=== PATIENT | female | born 1965 | race African-American/Black ===

== ENCOUNTER 2018-08-19 09:14 | Emergency (ER) | payer MEDICARE, OTHER, MEDICAID ==
[~2018-08-19] VITALS: Ht 154.9 cm; Wt 81.6 kg
[2018-08-19] MEDS ORDERED: HYDROcodone/APAP 5 MG/325 MG (LORTAB) TAB PO STA (09:53)
[2018-08-19] MEDS ORDERED: KETOROLAC 60 MG/2 ML VIAL IM STA (09:53)
[2018-08-19] MEDS ORDERED: ORPHENADRINE 60 MG/2 ML (NORFLEX) AMP IM STA (09:53)
--- NOTE | 2018-08-19 10:01 | ED Back Pain ---
General Chief Complaint: Lower Extremity Stated Complaint: R LEG/HIP PAIN Nursing Triage Note: pt presents to ed with complaints of r hip/leg pain since last wednesday. Pt denies any known injury. pt reports pain starts in her r hip and shoots down r leg. Nursing Sepsis Screen: No Definite Risk Source of Information: Patient Exam Limitations: No Limitations History of Present Illness Date Seen by Provider: Aug 19, 2018 Time Seen by Provider: 09:56 Initial Comments Here with report of right hip and leg pain that starts at her low back and shoots down her leg to her foot. Has had history of sciatica before. She has been trying [id number] ibuprofen, Aleve and Tylenol. She has not had anything since yesterday. Pain is worse today. Denies numbness between her legs, fevers, bowel or bladder incontinence or injury. Location: Paraspinous Muscles Timing/Duration: 4-5 Days Severity: Moderate Pain/Injury Location: Back, Pelvis Radiation: Buttocks, Lower Legs, Upper Legs Modifying Factors: Worse With Movement; Improves With Pain Medication Associated Symptoms: muscle spasms; No fever, No weakness, No numbness in legs/ feet; tingling in legs/feet; No lower back pain, No loss of bladder control, No loss of bowel control Allergies and Home Medications Allergies Coded Allergies: No Known Drug Allergies (Unverified , 08/19/18) Patient Home Medication List Home Medication List Reviewed: Yes Review of Systems Constitutional: see HPI; No chills, No fever Respiratory: no symptoms reported Cardiovascular: no symptoms reported Gastrointestinal: No abdominal pain, No nausea, No vomiting Genitourinary: no symptoms reported Musculoskeletal: see HPI, back pain, muscle pain Skin: no symptoms reported Psychiatric/Neurological: See HPI Past Rykpdnf-Xzxluu-Vkvgbv Hx Past Med/Social Hx: Reviewed Nursing Past Med/Soc Hx Patient Social History Alcohol Use: Occasionally Uses Recreational Drug Use: No Smoking Status: Current Everyday Smoker Type Used: Cigarettes Recent Foreign Travel: No Contact w/Someone Who Travel: No Recent Infectious Disease Expo: No Recent Hopitalizations: No Physical Abuse: No Sexual Abuse: No Mistreated: No Fear: No Seasonal Allergies Seasonal Allergies: No Past Medical History Surgeries: Yes Appendectomy, Section, Gallbladder, Hysterectomy, Tubal Ligation Respiratory: No Cardiac: No Neurological: No Genitourinary: No Gastrointestinal: Yes Colitis Musculoskeletal: No Endocrine: No HEENT: No Cancer: No Psychosocial: No Integumentary: No Blood Disorders: No Family Medical History Reviewed Nursing Family Hx Physical Exam Vital Signs Vital Signs - First Documented 08/19/18 09:31 Temp 98.2 Pulse 84 Resp 18 B/P (MAP) 134/97 (109) Pulse Ox 98 Capillary Refill : Less Than 3 Seconds Height, Weight, BMI Height: 5'1.00" Weight: 180lbs. oz. [id number]; BMI Method:Estimated General Appearance: No Apparent Distress, WD/WN Cardiovascular: Regular Rate, Rhythm, No Murmur Respiratory: Lungs Clear, Normal Breath Sounds Gastrointestinal: Normal Bowel Sounds, No Pulsatile Mass, Non Tender, Soft Back: Decreased Range of Motion; No Vertebral Tenderness; Other (tender at the right SI joint. Pain with range of motion to the right hip) Extremity: Normal Range of Motion, Non Tender, Pelvis Stable Neurologic/Psychiatric: Alert, Oriented x3, No Motor/Sensory Deficits Skin: Normal Color, Warm/Dry Progress/Results/Core Measures Results/Orders My Orders Orders - TIERRA DIAMOND MD Hydrocodone/Apap 5/325 Tablet (Lortab 5 (08/19/18 09:53) Ketorolac Injection (Toradol Injection) (08/19/18 09:53) Orphenadrine Injection (Norflex Injectio (08/19/18 09:53) Vital Signs/I&O 08/19/18 09:31 Temp 98.2 Pulse 84 Resp 18 B/P (MAP) 134/97 (109) Pulse Ox 98 Blood Pressure Mean: 109 Progress Progress Note : Progress Note Seen and evaluated. Toradol 60 mg IM, Norflex 60 mg IM and hydrocodone 5/325 one tab by mouth. Discharged home with return precautions. Patient verbalize understanding instructions and agreement with plan. Departure Impression Primary Impression: Sciatica, right side Disposition: HOME, SELF-CARE Condition: Stable Departure-Patient Inst. Decision time for Depature: 10:01 Patient Instructions: Sciatica (DC) Add. Discharge Instructions: All discharge instructions reviewed with patient and/or family. Voiced understanding. You may continue ibuprofen 600 mg every 8 hours as needed for pain. Take other pain medications as prescribed. Do not take Tylenol/acetaminophen with prescribed pain medicine as they both have Tylenol/acetaminophen in them. Follow-up with your doctor for recheck and further evaluation. Return for worse pain, fever, weakness, numbness between your legs, difficulty with walking or going to the bathroom or other concerns as needed. Scripts Methylprednisolone (Medrol) 4 Mg Tab.ds.pk 4 MG PO UD for 6 Days, #21 PKG 0 Refills PER DOSE PACK INSTRUCTIONS Prov: TIERRA DIAMOND MD 08/19/18 Hydrocodone Bit/Acetaminophen (Hydrocodone/Acetaminophen 5/325mg Tablet) 1 Tab Tab 1 EACH PO Q6H PRN for PAIN-MODERATE MDD 10, #10 TAB 0 Refills Prov: TIERRA DIAMOND MD 08/19/18 Cyclobenzaprine HCl (Cyclobenzaprine HCl) 10 Mg Tablet 10 MG PO Q8H PRN for SPASMS, #15 TAB 0 Refills Prov: TIERRA DIAMOND MD 08/19/18 TIERRA DIAMOND MD Aug 19, 2018 10:01
[2018-08-19] MEDS ORDERED: METH4TAB PO (10:04)
[2018-08-19] MEDS ORDERED: CYCL10TA9 PO (10:04)
[2018-08-19] MEDS ORDERED: ACHD5005 PO (10:04)
--- OUTSIDE RECORDS SUMMARY | 2018-08-19 10:26 | XMS REPORT ---
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 Name Role Phone ZACK CARRINGTON Unavailable PROBLEMS Unknown Problems ALLERGIES No Information ENCOUNTERS Encounter Location Date Diagnosis [facility] [address] [facility] [id number] [address] Aug, [facility] [address] [facility] [id number] [address] Jun, Encounter for immunization Z23 IMMUNIZATIONS Vaccine Route Administration Date Status FLULAVAL QUAD 0.5ML (6 MO & UP) 2018 IM Intramuscular Jul 06, 2018 Administered SOCIAL HISTORY Never Assessed REASON FOR VISIT Flu shot Tess Whaley MA PLAN OF CARE VITAL SIGNS MEDICATIONS Unknown Medications RESULTS No Results PROCEDURES Procedure Date Ordered Result Body Site FLULAVAL QUAD 0.5ML (6 MO & UP) 2017Jul 06, 2018 ADMN FLU VAC NO FEE SCHED SAME DAY Jul 06, 2018 SINGLE IMMUNIZATION ADMIN Jul 06, 2018 INSTRUCTIONS MEDICATIONS ADMINISTERED No Known Medications
--- OUTSIDE RECORDS SUMMARY | 2018-08-19 10:27 | XMS REPORT | Continuity of Care Document ---
Author Author [facility] Organization [facility] Address Unknown Phone Unavailable Allergies There is no data. Medications There is no data. Problems Date Dx Coded Attending Type Code Diagnosis Diagnosed By 06/07/2017 ZHANE PAN WORKING F19.10 Other psychoactive substance abuse, uncomplicated 06/07/2017 ZHANE PAN WORKING I10 Essential (primary) hypertension Procedures There is no data. Results Test Result Range CBC WITH DIFF - 06/05/17 23:02 WBC 8.00 10*3/uL 4.00-10.80 RBC 4.77 10*6/uL 4.20-5.40 HGB 15.9 g/dL 12.0-16.0 HCT 45.2 % 37.0-47.0 MCV 95 fL 81-99 MCH 33 pg 26.0-34.0 MCHC 35.2 g/dL 31.0-37.0 PLATELET COUNT 349 10*3/uL 150-400 RDWCV 13.8 % 11.5-14.5 DIFF TYPE AUTOMATED DIFF NEUTROPHIL % 73.5 % 36.0-66.0 LYMPHOCYTE % 20.8 % 24.0-44.0 MONOCYTE % 4.9 % 1.0-10.0 EOSINOPHIL % 0.1 % 0.0-6.0 BASOPHIL % 0.4 % 0.0-2.0 ABS. NEUTROPHILS 5.89 10*3/uL 1.55-7.13 ABS. LYMPHOCYTES 1.66 10*3/uL 1.00-4.80 ABS. MONOCYTES 0.39 10*3/uL 0.40-1.08 ABS. EOSINOPHILS 0.01 10*3/uL 0.00-0.65 ABS. BASOPHILS 0.03 10*3/uL 0.00-0.11 ABSOLUTE NUCLEATED RBC 0.00 10*3/uL 0.00 PERCENT NUCLEATED RBC 0.0 % 0.0 MPV 9.5 fL 9.4-12.3 RDW STANDARD DEVIATION 48.3 fL 36.4-46.3 GRANULOCYTE, IMMATURE, ABSOLUTE 0.0 10*3/uL 0.0-0.1 GRANULOCYTES, IMMATURE, PERCENT 0.3 % 0.0-0.5 COMPREHENSIVE METABOLIC PANEL - 06/05/17 23:02 POTASSIUM 3.2 mmol/L 3.5-5.1 CALCIUM 8.7 mg/dL 8.5-10.0 GLUCOSE 153 mg/dL 70-115 BUN 6 mg/dL 7-18 CREATININE 0.78 mg/dL 0.55-1.30 SODIUM 143 mmol/L 136-145 CHLORIDE 108 mmol/L 98-107 CO2 18 mmol/L 21-32 GFR ESTIMATED NOT AFR/AM >60 GFR ESTIMATED IF AFR/AM >60 ALT-SGPT 21 U/L 13-56 AST-SGOT 23 U/L 15-37 TOTAL PROTEIN,SERUM 8.3 g/dL 6.0-8.3 ALBUMIN 4.1 g/dL 3.4-5.0 ALKALINE PHOSPHATASE 93 U/L 45-117 TOTAL BILIRUBIN 0.3 mg/dL 0.2-1.0 ANION GAP 17 5-15 GLOBULIN, CALCULATED 4.2 g/dL A/G RATIO 1.0 ratio 1-1.8 LIPASE - 06/05/17 23:02 LIPASE 312 U/L 73-393 TROPONIN, HIGH SENSITIVITY - 06/05/17 23:02 TROPONIN HIGH SENSITIVITY <0.015 ng/mL <0.046 TSH WITH REFLEX TO FREE T4 - 06/05/17 23:02 TSH 3RD GENERATION 0.512 u[iU]/mL 0.350-4.900 URINALYSIS AUTOMATED W MICROSCOPY - 06/06/17 03:50 SPECIMEN VOIDED URINE COLOR LIGHT YELLOW APPEARANCE CLEAR CLEAR SPECIFIC GRAVITY 1.021 1.005-1.030 PH, URINE 6.5 5.0-9.0 PROTEIN SMALL mg/dL NEGATIVE GLUC TRACE mg/dL NEGATIVE KETONES TRACE mg/dL NEGATIVE BILIRUBIN NEGATIVE NEGATIVE BLOOD TRACE NEGATIVE NITRITE NEGATIVE NEGATIVE UROBILINOGEN NORMAL mg/dL NORMAL LEUKOCYTE ESTERASE NEGATIVE NEGATIVE WBC'S 1 [HPF] 0-4 RBC'S 1 [HPF] 0-1 MUCUS RARE [LPF] NEGATIVE SQUAMOUS EPITHELIAL CELLS 0 [HPF] 0-1 DRUG SCREEN URINE - 06/06/17 03:50 BARBITURATE, URINE NEGATIVE NEGATIVE BENZODIAZEPINE, URINE NEGATIVE NEGATIVE AMPHETAMINE, URINE NEGATIVE NEGATIVE THC, URINE POSITIVE NEGATIVE COCAINE, URINE NEGATIVE NEGATIVE OPIATES, URINE POSITIVE NEGATIVE PHENCYCLIDINE, URINE SCREEN NEGATIVE NEGATIVE ALCOHOL, URINE POSITIVE NEGATIVE ALCOHOL - 06/06/17 05:00 ALCOHOL NEGATIVE mg/dL NEGATIVE TROPONIN I POCT - 06/06/17 05:03 POC COMMENT SEE NOTES CARDIAC TROPONIN I POCT 0.03 ng/mL <0.08 GLUCOSE POCT - 06/06/17 06:39 GLUCOSE BY METER 137 mg/dL 70-115 POC COMMENT SEE NOTES BASIC METABOLIC PANEL - 06/07/17 04:19 POTASSIUM 3.7 mmol/L 3.5-5.1 CALCIUM 8.5 mg/dL 8.5-10.0 GLUCOSE 77 mg/dL 70-115 BUN 9 mg/dL 7-18 CREATININE 0.76 mg/dL 0.55-1.30 SODIUM 138 mmol/L 136-145 CHLORIDE 104 mmol/L 98-107 CO2 24 mmol/L 21-32 GFR ESTIMATED NOT AFR/AM >60 GFR ESTIMATED IF AFR/AM >60 ANION GAP 10 5-15 CBC WITH DIFF - 06/07/17 04:19 WBC 11.08 10*3/uL 4.00-10.80 RBC 4.55 10*6/uL 4.20-5.40 HGB 14.9 g/dL 12.0-16.0 HCT 44.4 % 37.0-47.0 MCV 98 fL 81-99 MCH 33 pg 26.0-34.0 MCHC 33.6 g/dL 31.0-37.0 PLATELET COUNT 326 10*3/uL 150-400 RDWCV 14.2 % 11.5-14.5 DIFF TYPE AUTOMATED DIFF NEUTROPHIL % 58.1 % 36.0-66.0 LYMPHOCYTE % 32.7 % 24.0-44.0 MONOCYTE % 8.2 % 1.0-10.0 EOSINOPHIL % 0.5 % 0.0-6.0 BASOPHIL % 0.2 % 0.0-2.0 ABS. NEUTROPHILS 6.45 10*3/uL 1.55-7.13 ABS. LYMPHOCYTES 3.62 10*3/uL 1.00-4.80 ABS. MONOCYTES 0.91 10*3/uL 0.40-1.08 ABS. EOSINOPHILS 0.05 10*3/uL 0.00-0.65 ABS. BASOPHILS 0.02 10*3/uL 0.00-0.11 ABSOLUTE NUCLEATED RBC 0.00 10*3/uL 0.00 PERCENT NUCLEATED RBC 0.0 % 0.0 MPV 10.0 fL 9.4-12.3 RDW STANDARD DEVIATION 51.0 fL 36.4-46.3 GRANULOCYTE, IMMATURE, ABSOLUTE 0.0 10*3/uL 0.0-0.1 GRANULOCYTES, IMMATURE, PERCENT 0.3 % 0.0-0.5 Encounters ACCT No. Visit Date/Time Discharge Status Pt. Type Provider Facility Loc./Unit Complaint [id number] 06/05/2017 22:03:00 06/07/2017 12:13:00 DIS Inpatient ZHANE PAN [address]
[2018-08-19 10:28] VITALS: BP 142/78
== END 2018-08-19 10:27 | disposition home or self-care (01) ==
LOC: ER 09:15
DX: M54.41 Lumbago with sciatica, right side (principal); F17.210 Nicotine dependence, cigarettes, uncomplicated; Z98.890 Other specified postprocedural states; Z90.49 Acquired absence of other specified parts of digestive tract; Z87.19 Personal history of other diseases of the digestive system; Z98.51 Tubal ligation status; Z90.710 Acquired absence of both cervix and uterus
CPT/HCPCS: 99284

== ENCOUNTER 2018-09-24 12:08 | Emergency (ER) | payer MEDICARE, OTHER, MEDICAID | END 2018-09-24 13:29 | disposition home or self-care (01) | LOC: ER 12:08 ==

== ENCOUNTER 2018-09-29 07:29 | Emergency (ER) | payer MEDICARE, OTHER, MEDICAID | END 2018-09-29 11:00 | disposition home or self-care (01) | LOC: ER 07:29 ==

== ENCOUNTER 2019-01-04 10:50 | Inpatient (IN) | payer MEDICARE, MEDICAID, OTHER | END 2019-01-05 10:45 | disposition left against medical advice (07) | LOC: ER 10:50 → ICU 15:30 | DX: I16.0 Hypertensive urgency (principal); F14.10 Cocaine abuse, uncomplicated; T40.5X5A Adverse effect of cocaine, initial encounter; A08.4 Viral intestinal infection, unspecified; E87.2 Acidosis; F17.210 Nicotine dependence, cigarettes, uncomplicated; R00.0 Tachycardia, unspecified; R40.0 Somnolence; D72.829 Elevated white blood cell count, unspecified; E83.42 Hypomagnesemia; E87.6 Hypokalemia ==

== ENCOUNTER 2020-04-01 14:52 | Emergency (ER) | payer MEDICAID, MEDICARE, OTHER ==
[~2020-04-01] VITALS: Ht 162 cm; Wt 72.5 kg
[~2020-04-01 14:52] MED LIST: ACHD5005 PO; AMIT25TA9 PO; AMLO10TA7 PO; CYCL10TA9 PO; IBUP-30 PO; METH4TAB PO; ONDA4TAB11 PO; PROM25TA14 PO
--- NOTE | 2020-04-01 14:57 | ED Abdominal Pain ---
General Stated Complaint: ABD PAIN;N/V Source of Information: Patient Exam Limitations: No Limitations History of Present Illness Date Seen by Provider: Apr 01, 2020 Time Seen by Provider: 14:55 Initial Comments To ER with nausea vomiting and abdominal pain epigastric in location that began at 2 AM this morning. She smokes marijuana daily. She was given Zofran route this does not help. She lives in [facility] and is here visiting a friend. Timing/Duration: 1-2 Days Severity/Quality: Moderate Location: Epigastric Radiation: No Radiation Activities at Onset: None Associated Symptoms: Nausea/Vomiting Allergies and Home Medications Allergies Coded Allergies: No Known Drug Allergies (Unverified , 08/19/18) Home Medications Amitriptyline HCl 25 Mg Tablet, 25 MG PO DAILY Prescribed by: SUMAYA STOKES on 01/05/19 1002 Patient Home Medication List Home Medication List Reviewed: Yes Review of Systems Review of Systems Constitutional: see HPI EENTM: No Symptoms Reported Respiratory: No Symptoms Reported Cardiovascular: No Symptoms Reported Gastrointestinal: See HPI, Abdominal Pain, Nausea Genitourinary: No Symptoms Reported Musculoskeletal: no symptoms reported Skin: no symptoms reported Psychiatric/Neurological: No Symptoms Reported Endocrine: No Symptoms Reported Hematologic/Lymphatic: No Symptoms Reported Past Ekmltbh-Cuxdzd-Kxbqlc Hx Patient Social History Alcohol Beverage of Choice: Beer Drug of Choice: MJ Type Used: Cigarettes Recent Hopitalizations: Yes (MAY 24-) Seasonal Allergies Seasonal Allergies: No Past Medical History Surgeries: Yes Appendectomy, Section, Gallbladder, Hysterectomy, Tubal Ligation Respiratory: No Cardiac: No Neurological: No Genitourinary: No Gastrointestinal: Yes Colitis Musculoskeletal: No Endocrine: No HEENT: No Cancer: No Psychosocial: No Integumentary: No Blood Disorders: No Physical Exam Vital Signs Vital Signs - First Documented 04/01/20 14:52 Temp 37.0 Pulse 93 Resp 18 B/P (MAP) 232/147 (175) Pulse Ox 100 O2 Delivery Room Air Capillary Refill : Height/Weight/BMI Height: 5'4.00" Weight: 174lbs. 2.0oz. 78.322465dc; 28.3 BMI Method:Stated General Appearance: WD/WN, moderate distress, other (wretching, diaphoresis) Neck: non-tender, full range of motion Respiratory: no respiratory distress, no accessory muscle use Gastrointestinal: normal bowel sounds, soft, tenderness Extremities: normal range of motion, non-tender Pelvic: normal external exam, normal adnexa Skin: normal color, diaphoresis Progress/Results/Core Measures Results/Orders Lab Results Laboratory Tests Test 04/01/20 15:00 04/01/20 15:19 Range/Units White Blood Count 8.0 4.3-11.0 10^3/uL Red Blood Count 4.90 4.35-5.85 10^6/uL Hemoglobin 16.1 H 11.5-16.0 G/DL Hematocrit 46 35-52 % Mean Corpuscular Volume 93 80-99 FL Mean Corpuscular Hemoglobin 33 25-34 PG Mean Corpuscular Hemoglobin Concent 35 32-36 G/DL Red Cell Distribution Width 13.6 10.0-14.5 % Platelet Count 351 130-400 10^3/uL Mean Platelet Volume 9.6 7.4-10.4 FL Neutrophils (%) (Auto) 63 42-75 % Lymphocytes (%) (Auto) 28 12-44 % Monocytes (%) (Auto) 8 0-12 % Eosinophils (%) (Auto) 1 0-10 % Basophils (%) (Auto) 0 0-10 % Neutrophils # (Auto) 5.1 1.8-7.8 X 10^3 Lymphocytes # (Auto) 2.2 1.0-4.0 X 10^3 Monocytes # (Auto) 0.7 0.0-1.0 X 10^3 Eosinophils # (Auto) 0.0 0.0-0.3 10^3/uL Basophils # (Auto) 0.0 0.0-0.1 10^3/uL Sodium Level 143 135-145 MMOL/L Potassium Level 3.6 3.6-5.0 MMOL/L Chloride Level 104 98-107 MMOL/L Carbon Dioxide Level 19 L 21-32 MMOL/L Anion Gap 20 H 5-14 MMOL/L Blood Urea Nitrogen 4 L 7-18 MG/DL Creatinine 0.96 0.60-1.30 MG/DL Estimat Glomerular Filtration Rate > 60 BUN/Creatinine Ratio 4 Glucose Level 129 H 70-105 MG/DL Calcium Level 9.9 8.5-10.1 MG/DL Corrected Calcium 8.5-10.1 MG/DL Total Bilirubin 1.4 H 0.1-1.0 MG/DL Aspartate Amino Transf (AST/SGOT) 38 H 5-34 U/L Alanine Aminotransferase (ALT/SGPT) 17 0-55 U/L Alkaline Phosphatase 90 40-136 U/L Troponin I < 0.028 <0.028 NG/ML Total Protein 8.1 6.4-8.2 GM/DL Albumin 4.9 H 3.2-4.5 GM/DL Lipase 29 8-78 U/L Serum Alcohol < 10 <10 MG/DL Urine Color YELLOW Urine Clarity CLEAR Urine pH 7.5 5-9 [address]rine Specific [facility] 1.020 1.016-1.022 Urine Protein 2+ H NEGATIVE Urine Glucose (UA) NEGATIVE NEGATIVE Urine Ketones TRACE H NEGATIVE Urine Nitrite NEGATIVE NEGATIVE Urine Bilirubin NEGATIVE NEGATIVE Urine Urobilinogen 0.2 < = 1.0 MG/DL Urine Leukocyte Esterase NEGATIVE NEGATIVE Urine RBC (Auto) TRACE-I NEGATIVE Urine RBC 0-2 /HPF Urine WBC 0-2 /HPF Urine Squamous Epithelial Cells 5-10 /HPF Urine Crystals PRESENT H /LPF Urine Amorphous Sediment FEW SARABJIT PHOSPHATE H /LPF Urine Bacteria TRACE /HPF Urine Casts NONE /LPF Urine Mucus LARGE H /LPF Urine Culture Indicated NO Urine Opiates Screen NEGATIVE NEGATIVE Urine Oxycodone Screen NEGATIVE NEGATIVE Urine Methadone Screen NEGATIVE NEGATIVE Urine Propoxyphene Screen NEGATIVE NEGATIVE Urine Barbiturates Screen NEGATIVE NEGATIVE Ur Tricyclic Antidepressants Screen NEGATIVE NEGATIVE Urine Phencyclidine Screen NEGATIVE NEGATIVE Urine Amphetamines Screen NEGATIVE NEGATIVE Urine Methamphetamines Screen NEGATIVE NEGATIVE Urine Benzodiazepines Screen NEGATIVE NEGATIVE Urine Cocaine Screen POSITIVE H NEGATIVE Urine Cannabinoids Screen POSITIVE H NEGATIVE My Orders Orders - ASAD DAVIS APRN Ekg Tracing (04/01/20 14:53) Lipase (04/01/20 14:53) Ua Culture If Indicated (04/01/20 14:53) Drug Screen Stat (Urine) (04/01/20 14:53) Alcohol (04/01/20 14:53) Ed Iv/Invasive Line Start (04/01/20 14:53) Cbc With Automated Diff (04/01/20 14:53) Comprehensive Metabolic Panel (04/01/20 14:53) Ns Iv 1000 Ml (Sodium Chloride 0.9%) (04/01/20 15:00) Haloperidol Injection (Haldol Injectio (04/01/20 15:00) Lorazepam Injection (Ativan Injection) (04/01/20 16:00) Lorazepam Injection (Ativan Injection) (04/01/20 16:15) Hydralazine Injection (Apresoline Inject (04/01/20 16:15) Ct Abdomen/Pelvis W (04/01/20 16:11) Iohexol Injection (Omnipaque 350 Mg/Ml 1 (04/01/20 16:15) Received Contrast (Hold Metformin- Contr (04/01/20 16:15) Ns (Ivpb) (Sodium Chloride 0.9% Ivpb Bag (04/01/20 16:15) Troponin I (04/01/20 16:42) D5w Iv Solution (Ex... W/Nitroprusside I (04/01/20 16:45) Clonidine Tablet (Catapres Tablet) (04/01/20 17:15) Medications Given in ED Current Medications Medications Dose Ordered Sig/Doni Route Start Time Stop Time Status Last Admin Dose Admin Clonidine HCl 0.2 mg ONCE ONCE PO 04/01/20 17:15 04/01/20 17:16 DC 04/01/20 17:18 0.2 MG Haloperidol Lactate 5 mg ONCE ONCE IV 04/01/20 15:00 04/01/20 15:01 DC 04/01/20 15:05 5 MG Hydralazine HCl 20 mg ONCE ONCE IV 04/01/20 16:15 04/01/20 16:16 DC 04/01/20 17:12 20 MG Iohexol 100 ml ONCE ONCE IV 04/01/20 16:15 04/01/20 16:17 DC 04/01/20 16:59 100 ML Lorazepam 1 mg ONCE PRN IVP 04/01/20 16:00 04/01/20 15:56 1 MG Sodium Chloride 100 ml ONCE ONCE IV 04/01/20 16:15 04/01/20 16:17 DC 04/01/20 16:59 100 ML Vital Signs/I&O 04/01/20 04/01/20 14:52 15:59 Temp 37.0 Pulse 93 71 Resp 18 16 B/P (MAP) 232/147 (175) 243/140 (174) Pulse Ox 100 99 O2 Delivery Room Air Room Air Diagnostic Imaging Diagonstic Imaging: CT Comments NAME: MONICA MOJICA REC#: [id number] PT STATUS: REG ER : 1965 PHYSICIAN: ASAD DAVIS [employer]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 TECHNIQUE: Multiple contiguous axial images were obtained through the abdomen and pelvis after administration of intravenous contrast. INDICATION: Nausea, emesis, diarrhea and abdominal pain. COMPARISON: 01/04/2019. FINDINGS: There is somewhat heterogeneous low-density seen throughout the liver parenchyma. This is likely due to geographic fatty infiltration. Gallbladder is surgically absent without evidence of biliary ductal dilatation. There is no evidence of pancreatic, adrenal gland or renal lesion. There is no evidence of free fluid within the abdomen or pelvis. The urinary bladder is distended but otherwise unremarkable in appearance. There is no evidence of free fluid within the abdomen or pelvis. There is mild aortoiliac atherosclerotic calcification. There appears to be diffuse mural thickening involving the colon. No significant pericolonic inflammation or organized fluid collection is identified. IMPRESSION: Diffuse colonic mural thickening suggestive of colitis. No other definite acute abnormality is identified, although there does appear to be geographic fatty infiltration of the liver. Dictated on workstation # [id number] Dict: 04/01/20 1709 Trans: 04/01/20 1713 [facility] [id number] Interpreted by: JEN AYALA MD Electronically signed by: Departure Communication (Admissions) 1648-blood pressure still 240/129 heart rate 80s. 20 mg of IV hydralazine +0.2 mg of clonidine ordered. At this time she feels much better, her abdominal pain and nausea are mostly gone. She states she does feel good enough to go on home however her blood pressure is concerning. 1809-still feeling well, blood pressure down to 198/124. Next reading continues to drop we will discharge to home with a prescription for antihypertensives and have her follow up with primary care. Impression Primary Impression: Cannabinoid hyperemesis syndrome Additional Impressions: Cocaine abuse Uncontrolled hypertension Disposition: ADMITTED INPATIENT Condition: Stable Admissions Decision to Admit Reason: Admit from ER (General) Decision to Admit/Date: Apr 01, 2020 Time/Decision to Admit Time: 16:47 Departure-Patient Inst. Decision time for Depature: 18:11 Referrals: [facility] (PCP/Family) Primary Care Physician Patient Instructions: Malignant Hypertension (DC) Add. Discharge Instructions: 1. Medication as directed. Try super hard not to use any more cocaine or marijuana. Scripts Losartan Potassium (Losartan Potassium) 50 Mg Tablet 50 MG PO DAILY, #30 TAB Prov: ASAD DAVIS APRN 04/01/20 ASAD DAVIS APRN Apr 01, 2020 14:56
[2020-04-01] MEDS ORDERED: NS IV 1000 ML 1,000 ML IV SCH (15:00)
[2020-04-01] MEDS ORDERED: HALOPERIDOL 5 MG/ML (HALDOL) VIAL IV ONE (15:00)
[2020-04-01 15:13] LABS: BASOPHILS % (AUTO) 0 % (0-10); EOSINOPHILS % (AUTO) 1 % (0-10); HEMATOCRIT 46 % (35-52); HEMOGLOBIN 16.1 G/DL (11.5-16.0); LYMPHOCYTES # (AUTO) 2.2 X 10^3 (1.0-4.0); LYMPHOCYTES % (AUTO) 28 % (12-44); MEAN CORPUSCULAR HEMOGLOBIN 33 PG (25-34); MEAN CORPUSCULAR HGB CONC 35 G/DL (32-36); MEAN CORPUSCULAR VOLUME 93 FL (80-99); MEAN PLATELET VOLUME 9.6 FL (7.4-10.4); MONOCYTES # (AUTO) 0.7 X 10^3 (0.0-1.0); MONOCYTES % (AUTO) 8 % (0-12); NEUTROPHILS # (AUTO) 5.1 X 10^3 (1.8-7.8); NEUTROPHILS % (AUTO) 63 % (42-75); PLATELET COUNT 351 10^3/uL (130-400); RED CELL DISTRIBUTION WIDTH 13.6 % (10.0-14.5)
[2020-04-01 15:18] LABS: ALBUMIN 4.9 GM/DL (3.2-4.5); CHLORIDE 104 MMOL/L (98-107); POTASSIUM 3.6 MMOL/L (3.6-5.0); SODIUM 143 MMOL/L (135-145)
[2020-04-01 15:19] LABS: CALCIUM 9.9 MG/DL (8.5-10.1)
[2020-04-01 15:21] LABS: GLUCOSE 129 MG/DL (70-105); TOTAL PROTEIN 8.1 GM/DL (6.4-8.2)
[2020-04-01 15:22] LABS: BILIRUBIN,TOTAL 1.4 MG/DL (0.1-1.0); CARBON DIOXIDE 19 MMOL/L (21-32)
[2020-04-01 15:24] LABS: ALKALINE PHOSPHATASE 90 U/L (40-136); CREATININE SERUM 0.96 MG/DL (0.60-1.30); GFR ESTIMATED > 60
[2020-04-01 15:25] LABS: BUN/CREATININE RATIO 4
[2020-04-01 15:27] LABS: ALANINE AMINOTRANSFERASE 17 U/L (0-55)
[2020-04-01 15:28] LABS: LIPASE 29 U/L (8-78)
[2020-04-01 15:32] LABS: BILIRUBIN,URINE NEGATIVE (NEGATIVE); CLARITY,URINE CLEAR; COLOR,URINE YELLOW; GLUCOSE, URINE (UA) NEGATIVE (NEGATIVE); KETONES,URINE TRACE (NEGATIVE); LEUKOCYTE ESTERASE ,URINE NEGATIVE (NEGATIVE); NITRITE,URINE NEGATIVE (NEGATIVE); PH,URINE 7.5 (5-9); PROTEIN,URINE 2+ (NEGATIVE)
[2020-04-01 15:48] LABS: AMPHETAMINE SCREEN, URINE NEGATIVE (NEGATIVE); BARBITURATE SCREEN URINE NEGATIVE (NEGATIVE); BENZODIAZEPINES SCREEN URINE NEGATIVE (NEGATIVE); CANNABINOID SCREEN, URINE POSITIVE (NEGATIVE); COCAINE SCREEN URINE POSITIVE (NEGATIVE); METHADONE STAT NEGATIVE (NEGATIVE); METHAMPHETAMINE SCREEN URINE S NEGATIVE (NEGATIVE); OPIATE SCREEN URINE NEGATIVE (NEGATIVE); OXYCODONE STAT NEGATIVE (NEGATIVE); PROPOXYPHENE STAT NEGATIVE (NEGATIVE); TRICYCLIC ANTIDEPRESSANTS SCRE NEGATIVE (NEGATIVE)
[2020-04-01 15:59] VITALS: BP 243/140
[2020-04-01] MEDS ORDERED: LORazepam INJ 2 MG/ML (ATIVAN) VIAL IVP PRN (16:00)
[2020-04-01 16:05] LABS: BACTERIA,URINE TRACE /HPF; RBC,URINE 0-2 /HPF; WBC,URINE 0-2 /HPF
[2020-04-01 16:06] LABS: AMORPHOUS SEDIMENT,UR FEW AMOR PHOSPHATE /LPF
[2020-04-01] MEDS ORDERED: IOHEXOL 350 MG/ML 100 ML (OMNIPAQUE 350) VIAL IV ONE (16:15)
[2020-04-01] MEDS ORDERED: HOLD METFORMIN - RECEIVED CONTRAST 20 ML VIAL IV SCH (16:15)
[2020-04-01] MEDS ORDERED: hydrALAZINE (APESOLINE) 20 MG/ML VIAL IV ONE (16:15)
[2020-04-01] MEDS ORDERED: LORazepam INJ 2 MG/ML (ATIVAN) VIAL IVP ONE (16:15)
[2020-04-01] MEDS ORDERED: NS 100 ML (IVPB) BAG IV ONE (16:15)
[2020-04-01] MEDS ORDERED: NITROPRUSSIDE INJECTION 50 MG in D5W IV SOLUTION (EXCEL) 250 ML IV SCH (16:45)
--- NOTE | 2020-04-01 17:14 | Diagnostic Imaging Report ---
CT ABDOMEN/PELVIS W PROCEDURE: CT abdomen and pelvis with contrast. TECHNIQUE: Multiple contiguous axial images were obtained through the abdomen and pelvis after administration of intravenous contrast. INDICATION: Nausea, emesis, diarrhea and abdominal pain. COMPARISON: 01/04/2019. FINDINGS: There is somewhat heterogeneous low-density seen throughout the liver parenchyma. This is likely due to geographic fatty infiltration. Gallbladder is surgically absent without evidence of biliary ductal dilatation. There is no evidence of pancreatic, adrenal gland or renal lesion. There is no evidence of free fluid within the abdomen or pelvis. The urinary bladder is distended but otherwise unremarkable in appearance. There is no evidence of free fluid within the abdomen or pelvis. There is mild aortoiliac atherosclerotic calcification. There appears to be diffuse mural thickening involving the colon. No significant pericolonic inflammation or organized fluid collection is identified. IMPRESSION: Diffuse colonic mural thickening suggestive of colitis. No other definite acute abnormality is identified, although there does appear to be geographic fatty infiltration of the liver. Dictated by: Dictated on workstation # [id number]
[2020-04-01] MEDS ORDERED: cloNIDine 0.1 MG (CATAPRES) TAB PO ONE (17:15)
--- OUTSIDE RECORDS SUMMARY | 2020-04-01 17:27 | XMS REPORT | Continuity of Care Document ---
Author Organization Unknown Address Unknown Phone Unavailable Allergies Active Description Code Type Severity Reaction Onset Reported/Identified Relationship to Patient Clinical Status Yes No Known Drug Allergies [id number] Drug Allergy Unknown N/A 08/04/2014 Yes No Known Drug Allergies [id number] Drug Allergy Unknown N/A 08/19/2018 Medications There is no data. Problems Date Dx Coded Attending Type Code Diagnosis Diagnosed By 08/05/2014 Other 305.1 T OBACCO USE DISORDER 08/05/2014 Other 491.22 OBSTRUCTIVE CHRONIC BRONCHITIS WITH ACUTE BRONCHITIS 08/05/2014 Other 493.22 CHRONIC OBSTRUCTIVE ASTHMA, W (ACUTE) EXACERBATION 08/05/2014 Other 518.81 ACUTE RESPIRATORY FAILURE 08/05/2014 Other 785.0 T ACHYCARDIA NOS 08/05/2014 Other V45.79 ACQRD ABSENCE OF OTH ORGAN 08/05/2014 Other V88.01 ACQUIRED ABSENCE OF BOTH CERVIX AND UTERUS 01/07/2015 Other 305.1 T OBACCO USE DISORDER 01/07/2015 Other 465.9 A CUTE URI NOS 01/07/2015 Other V45.89 POSTSURGICAL STATES NEC 01/07/2015 Other V88.01 ACQUIRED ABSENCE OF BOTH CERVIX AND UTERUS 02/08/2015 Other 276.2 A CIDOSIS 02/08/2015 Other 276.8 H YPOPOTASSEMIA 02/08/2015 Other 295.90 SCHIZOPHRENIA NOS-UNSPEC 02/08/2015 Other 296.80 BIPOLAR DISORDER, UNSPECIFIED 02/08/2015 Other 305.1 T OBACCO USE DISORDER 02/08/2015 Other 496 CHR AIRWAY OBSTRUCT NEC 02/08/2015 Other 530.81 ESOPHAGEAL REFLUX 02/08/2015 Other 558.9 N ONINF GASTROENTERIT NEC 02/08/2015 Other 560.9 I NTESTINAL OBSTRUCT NOS 02/08/2015 Other 584.5 A CUTE KIDNEY FAILURE WITH LESION OF TUBULAR NECROSIS 02/08/2015 Other 599.0 U RIN TRACT INFECTION NOS 02/08/2015 Other 724.3 S CIATICA 02/08/2015 Other V26.51 TUBAL LIGATION STATUS 02/08/2015 Other V45.79 ACQRD ABSENCE OF OTH ORGAN 02/08/2015 Other V88.01 ACQUIRED ABSENCE OF BOTH CERVIX AND UTERUS 10/15/2015 Other A04.7 E NTEROCOLITIS DUE TO CLOSTRIDIUM DIFFICILE 10/15/2015 Other B96.89 OTH BACTERIAL AGENTS THE CAUSE OF DISEASES CLASSD ELSWHR 10/15/2015 Other E87.6 H YPOKALEMIA 10/15/2015 Other F10.10 ALCOHOL ABUSE, UNCOMPLICATED 10/15/2015 Other F12.90 CANNABIS USE, UNSPECIFIED, UNCOMPLICATED 10/15/2015 Other F14.10 COCAINE ABUSE, UNCOMPLICATED 10/15/2015 Other F17.210 NICOTINE DEPENDENCE, CIGARETTES, UNCOMPLICATED 10/15/2015 Other F20.9 S CHIZOPHRENIA, UNSPECIFIED 10/15/2015 Other F31.9 B IPOLAR DISORDER, UNSPECIFIED 10/15/2015 Other F41.9 A NXIETY DISORDER, UNSPECIFIED 10/15/2015 Other I12.9 H YPERTENSIVE CHRONIC KIDNEY DISEASE W STG 1-4/UNSP CHR KDNY 10/15/2015 Other J44.9 C HRONIC OBSTRUCTIVE PULMONARY DISEASE, UNSPECIFIED 10/15/2015 Other K21.9 G CECIL- ESOPHAGEAL REFLUX DISEASE WITHOUT ESOPHAGITIS 10/15/2015 Other N17.9 A CUTE KIDNEY FAILURE, UNSPECIFIED 10/15/2015 Other N18.9 C HRONIC KIDNEY DISEASE, UNSPECIFIED 10/15/2015 Other Z82.49 FAMILY HX OF ISCHEM HEART DIS AND OTH DIS OF THE CIRC SYS 10/15/2015 Other Z83.3 F AMILY HISTORY OF DIABETES MELLITUS 10/15/2015 Other Z87.440 PERSONAL HISTORY OF URINARY (TRACT) INFECTIONS 10/15/2015 Other Z90.49 ACQUIRED ABSENCE OF OTHER SPECIFIED PARTS OF DIGESTIVE TRACT 10/15/2015 Other Z90.710 ACQUIRED ABSENCE OF BOTH CERVIX AND UTERUS 10/15/2015 Other Z98.51 TUBAL LIGATION STATUS 10/15/2015 Other Z98.89 OTHER SPECIFIED POSTPROCEDURAL STATES 06/07/2017 ZHANE PAN WORKING F19.10 Other psychoactive substance abuse, uncomplicated 06/07/2017 ZHANE PAN WORKING I10 Essential (primary) hypertension 08/22/2017 Other K52.9 N ONINFECTIVE GASTROENTERITIS AND COLITIS, UNSPECIFIED 08/22/2017 Other R11.2 N AUSEA WITH VOMITING, UNSPECIFIED 08/22/2017 Other Z90.49 ACQUIRED ABSENCE OF OTHER SPECIFIED PARTS OF DIGESTIVE TRACT 08/22/2017 Other Z90.710 ACQUIRED ABSENCE OF BOTH CERVIX AND UTERUS 08/22/2017 Other Z98.51 TUBAL LIGATION STATUS 10/15/2017 Other K52.9 N ONINFECTIVE GASTROENTERITIS AND COLITIS, UNSPECIFIED 10/15/2017 Other M54.30 SCIATICA, UNSPECIFIED SIDE 10/15/2017 Other R10.10 UPPER ABDOMINAL PAIN, UNSPECIFIED 10/15/2017 Other Z90.49 ACQUIRED ABSENCE OF OTHER SPECIFIED PARTS OF DIGESTIVE TRACT 10/15/2017 Other Z90.710 ACQUIRED ABSENCE OF BOTH CERVIX AND UTERUS 10/15/2017 Other Z98.51 TUBAL LIGATION STATUS 11/02/2017 Other A09 INF ECTIOUS GASTROENTERITIS AND COLITIS, UNSPECIFIED 11/02/2017 Other A41.9 S EPSIS, UNSPECIFIED ORGANISM 11/02/2017 Other B19.20 UNSPECIFIED VIRAL HEPATITIS C WITHOUT HEPATIC COMA 11/02/2017 Other E87.2 A CIDOSIS 11/02/2017 Other F12.90 CANNABIS USE, UNSPECIFIED, UNCOMPLICATED 11/02/2017 Other F17.210 NICOTINE DEPENDENCE, CIGARETTES, UNCOMPLICATED 11/02/2017 Other F32.9 M AJOR DEPRESSIVE DISORDER, SINGLE EPISODE, UNSPECIFIED 11/02/2017 Other F41.9 A NXIETY DISORDER, UNSPECIFIED 11/02/2017 Other K29.70 GASTRITIS, UNSPECIFIED, WITHOUT BLEEDING 11/02/2017 Other K63.5 P OLYP OF COLON 11/02/2017 Other Z83.3 F AMILY HISTORY OF DIABETES MELLITUS 11/02/2017 Other Z90.49 ACQUIRED ABSENCE OF OTHER SPECIFIED PARTS OF DIGESTIVE TRACT 11/02/2017 Other Z90.710 ACQUIRED ABSENCE OF BOTH CERVIX AND UTERUS 11/02/2017 Other Z98.51 TUBAL LIGATION STATUS 12/17/2017 Other B19.20 UNSPECIFIED VIRAL HEPATITIS C WITHOUT HEPATIC COMA 12/17/2017 Other F12.10 CANNABIS ABUSE, UNCOMPLICATED 12/17/2017 Other F14.10 COCAINE ABUSE, UNCOMPLICATED 12/17/2017 Other F17.210 NICOTINE DEPENDENCE, CIGARETTES, UNCOMPLICATED 12/17/2017 Other F20.9 S CHIZOPHRENIA, UNSPECIFIED 12/17/2017 Other F31.9 B IPOLAR DISORDER, UNSPECIFIED 12/17/2017 Other F41.9 A NXIETY DISORDER, UNSPECIFIED 12/17/2017 Other I11.0 H YPERTENSIVE HEART DISEASE WITH HEART FAILURE 12/17/2017 Other I16.0 H YPERTENSIVE URGENCY 12/17/2017 Other I50.30 UNSPECIFIED DIASTOLIC (CONGESTIVE) HEART FAILURE 12/17/2017 Other J44.9 C HRONIC OBSTRUCTIVE PULMONARY DISEASE, UNSPECIFIED 12/17/2017 Other K21.9 G CECIL- ESOPHAGEAL REFLUX DISEASE WITHOUT ESOPHAGITIS 12/17/2017 Other K52.9 N ONINFECTIVE GASTROENTERITIS AND COLITIS, UNSPECIFIED 12/17/2017 Other K63.5 P OLYP OF COLON 12/17/2017 Other Z87.440 PERSONAL HISTORY OF URINARY (TRACT) INFECTIONS 12/17/2017 Other Z90.49 ACQUIRED ABSENCE OF OTHER SPECIFIED PARTS OF DIGESTIVE TRACT 12/17/2017 Other Z90.710 ACQUIRED ABSENCE OF BOTH CERVIX AND UTERUS 12/17/2017 Other Z91.14 PATIENT'S OTHER NONCOMPLIANCE WITH MEDICATION REGIMEN 12/17/2017 Other Z91.19 PATIENT'S NONCOMPLIANCE W OTH MEDICAL TREATMENT AND REGIMEN 12/17/2017 Other Z98.51 TUBAL LIGATION STATUS 04/29/2018 Other I83.92 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 04/29/2018 Other I83.93 ASYMPTOMATIC VARICOSE VEINS OF BILATERAL LOWER EXTREMITIES 05/11/2018 Other E86.0 D EHYDRATION 05/11/2018 Other F10.231 ALCOHOL DEPENDENCE WITH WITHDRAWAL DELIRIUM 05/11/2018 Other F12.10 CANNABIS ABUSE, UNCOMPLICATED 05/11/2018 Other F14.10 COCAINE ABUSE, UNCOMPLICATED 05/11/2018 Other F17.210 NICOTINE DEPENDENCE, CIGARETTES, UNCOMPLICATED 05/11/2018 Other F20.9 S CHIZOPHRENIA, UNSPECIFIED 05/11/2018 Other F31.9 B IPOLAR DISORDER, UNSPECIFIED 05/11/2018 Other F41.9 A NXIETY DISORDER, UNSPECIFIED 05/11/2018 Other G89.29 OTHER CHRONIC PAIN 05/11/2018 Other G92 TOX IC ENCEPHALOPATHY 05/11/2018 Other I10 ESS ENTIAL (PRIMARY) HYPERTENSION 05/11/2018 Other J44.9 C HRONIC OBSTRUCTIVE PULMONARY DISEASE, UNSPECIFIED 05/11/2018 Other K21.9 G CECIL- ESOPHAGEAL REFLUX DISEASE WITHOUT ESOPHAGITIS 05/11/2018 Other K29.50 UNSPECIFIED CHRONIC GASTRITIS WITHOUT BLEEDING 05/11/2018 Other M54.9 D ORSALGIA, UNSPECIFIED 05/11/2018 Other R07.89 OTHER CHEST PAIN 05/11/2018 Other Y90.5 B LOOD ALCOHOL LEVEL OF 100-119 MG/100 ML 05/11/2018 Other Z79.82 FINANCIAL AID DIRECTOR (CURRENT) USE OF ASPIRIN 05/11/2018 Other Z79.899 OTHER FINANCIAL AID DIRECTOR (CURRENT) DRUG THERAPY 05/11/2018 Other Z86.010 PERSONAL HISTORY OF COLONIC POLYPS 05/11/2018 Other Z87.440 PERSONAL HISTORY OF URINARY (TRACT) INFECTIONS 05/11/2018 Other Z90.49 ACQUIRED ABSENCE OF OTHER SPECIFIED PARTS OF DIGESTIVE TRACT 05/11/2018 Other Z90.710 ACQUIRED ABSENCE OF BOTH CERVIX AND UTERUS 05/11/2018 Other Z91.14 PATIENT'S OTHER NONCOMPLIANCE WITH MEDICATION REGIMEN 05/11/2018 Other Z91.19 PATIENT'S NONCOMPLIANCE W [facility] MEDICAL TREATMENT AND REGIMEN 05/11/2018 Other Z98.51 TUBAL LIGATION STATUS 08/19/2018 TIERRA DIAMOND MD Ot F17.210 NICOTINE DEPENDENCE, CIGARETTES, UNCOMPL 08/19/2018 TIERRA DIAMOND MD, Ot M25.551 PAIN IN RIGHT HIP 08/19/2018 TIERRA DIAMOND MD Ot M54.41 LUMBAGO WITH SCIATICA, RIGHT SIDE 08/19/2018 TIERRA DIAMOND MD Ot Z87.19 PERSONAL HISTORY OF OTHER DISEASES OF TH 08/19/2018 TIERRA DIAMOND MD Ot Z90.49 ACQUIRED ABSENCE OF OTHER SPECIFIED PART 08/19/2018 TIERRA DIAMOND MD Ot Z90.710 ACQUIRED ABSENCE OF BOTH CERVIX AND UTER 08/19/2018 TIERRA DIAMOND MD Ot Z98.51 TUBAL LIGATION STATUS 08/19/2018 TIERRA DIAMOND MD Ot Z98.890 OTHER SPECIFIED POSTPROCEDURAL STATES 09/24/2018 JJ PATTON Ot M25.551 PAIN IN RIGHT HIP 09/24/2018 JJ PATTON Ot M54.31 SCIATICA, RIGHT SIDE 09/24/2018 JJ PATTON Ot Z79.52 ASSISTED (CURRENT) USE OF SYSTEMIC STER 09/24/2018 ALEXUS PATTONIS Ot Z87.19 PERSONAL HISTORY OF OTHER DISEASES OF TH 09/24/2018 JJ PATTON Ot Z90.49 ACQUIRED ABSENCE OF OTHER SPECIFIED PART 09/24/2018 BERNALEXUS MATTHEWIS Ot Z90.710 ACQUIRED ABSENCE OF BOTH CERVIX AND UTER 09/24/2018 ALEXUS PATTONIS Ot Z98.51 TUBAL LIGATION STATUS 09/24/2018 JJ PATTON Ot Z98.890 OTHER SPECIFIED POSTPROCEDURAL STATES 09/29/2018 CHET NAVARRO MD J Ot A08. 4 VIRAL INTESTINAL INFECTION, UNSPECIFIED 09/29/2018 LIZZ NAVARRO MDUS J Ot E11. 9 TYPE 2 DIABETES MELLITUS WITHOUT COMPLIC 09/29/2018 LIZZ NAVARRO MDUS J Ot F17.210 NICOTINE DEPENDENCE, CIGARETTES, UNCOMPL 09/29/2018 LIZZ NAVARRO MDUS J Ot I16. 0 HYPERTENSIVE URGENCY 09/29/2018 LIZZ NAVARRO MDUS J Ot R11. 2 NAUSEA WITH VOMITING, UNSPECIFIED 09/29/2018 CHET NAVARRO MD J Ot Z79. 52 FINANCIAL AID DIRECTOR (CURRENT) USE OF SYSTEMIC STER 09/29/2018 CHET NAVARRO MD J Ot Z87. 19 PERSONAL HISTORY OF OTHER DISEASES OF TH 09/29/2018 CHET NAVARRO MD Ot Z90. 49 ACQUIRED ABSENCE OF OTHER SPECIFIED PART 09/29/2018 CHET NAVARRO MD J Ot Z90.710 ACQUIRED ABSENCE OF BOTH CERVIX AND UTER 09/29/2018 CHET NAVARRO MD J Ot Z98. 51 TUBAL LIGATION STATUS 09/29/2018 CHET NAVARRO MD J Ot Z98.890 OTHER SPECIFIED POSTPROCEDURAL STATES 10/03/2018 CHET NAVARRO MD J Ot A08. 4 VIRAL INTESTINAL INFECTION, UNSPECIFIED 10/03/2018 LIZZ NAVARRO MDUS J Ot E11. 9 TYPE 2 DIABETES MELLITUS WITHOUT COMPLIC 10/03/2018 LIZZ NAVARRO MDUS J Ot F17.210 NICOTINE DEPENDENCE, CIGARETTES, UNCOMPL 10/03/2018 LIZZ NAVARRO MDUS J Ot I16. 0 HYPERTENSIVE URGENCY 10/03/2018 LIZZ NAVARRO MDUS J Ot R11. 2 NAUSEA WITH VOMITING, UNSPECIFIED 10/03/2018 LIZZ NAVARRO MDUS J Ot Z79. 52 ASSISTED (CURRENT) USE OF SYSTEMIC STER 10/03/2018 CHET NAVARRO MD, Ot Z87. 19 PERSONAL HISTORY OF OTHER DISEASES OF TH 10/03/2018 CHET NAVARRO MD, Ot Z90. 49 ACQUIRED ABSENCE OF OTHER SPECIFIED PART 10/03/2018 CHET NAVARRO MD, Ot Z90.710 ACQUIRED ABSENCE OF BOTH CERVIX AND UTER 10/03/2018 CHET NAVARRO MD, Ot Z98. 51 TUBAL LIGATION STATUS 10/03/2018 CHET NAVARRO MD, Ot Z98.890 OTHER SPECIFIED POSTPROCEDURAL STATES 01/05/2019 SUMAYA STOKES MD, Ot A08 .4 VIRAL INTESTINAL INFECTION, UNSPECIFIED 01/05/2019 SUMAYA STOKES MD, Ot D72.829 ELEVATED WHITE BLOOD CELL COUNT, UNSPECI 01/05/2019 SMUAYA STOKES MD Ot E83.42 HYPOMAGNESEMIA 01/05/2019 SUMAYA STOKES MD Ot E87 .2 ACIDOSIS 01/05/2019 SUMAYA STOKES MD Ot E87 .6 HYPOKALEMIA 01/05/2019 SUMAYA STOKES MD Ot F14.10 COCAINE ABUSE, UNCOMPLICATED 01/05/2019 SUMAYA STOKES MD Ot F17.210 NICOTINE DEPENDENCE, CIGARETTES, UNCOMPL 01/05/2019 SUMYAA STOKES MD Ot I16 .0 HYPERTENSIVE URGENCY 01/05/2019 SUMAYA STOKES MD Ot R00 .0 TACHYCARDIA, UNSPECIFIED 01/05/2019 SUMAYA STOKES MD Ot R40 .0 SOMNOLENCE 01/05/2019 SUMAYA STOKES MD Ot T40.5X5A ADVERSE EFFECT OF COCAINE, INITIAL ENCOU 01/05/2019 SUMAYA STOKES MD Ot A08 .4 VIRAL INTESTINAL INFECTION, UNSPECIFIED 01/05/2019 SUMAYA STOKES MD, Ot D72.829 ELEVATED WHITE BLOOD CELL COUNT, UNSPECI 01/05/2019 SUMAYA STOKES MD Ot E83.42 HYPOMAGNESEMIA 01/05/2019 SUMAYA STOKES MD Ot E87 .2 ACIDOSIS 01/05/2019 SUMAYA STOKES MD Ot E87 .6 HYPOKALEMIA 01/05/2019 SUMAYA STOKES MD Ot F14.10 COCAINE ABUSE, UNCOMPLICATED 01/05/2019 DIVYA LINDSAY, SUMAYA Chau Ot F17.210 NICOTINE DEPENDENCE, CIGARETTES, UNCOMPL 01/05/2019 SUMAYA STOKES MD Ot I16 .0 HYPERTENSIVE URGENCY 01/05/2019 SUMAYA STOKES MD Ot R00 .0 TACHYCARDIA, UNSPECIFIED 01/05/2019 SUMAYA STOKES MD Ot R40 .0 SOMNOLENCE 01/05/2019 SUMAYA STOKES MD Ot T40.5X5A ADVERSE EFFECT OF COCAINE, INITIAL ENCOU 02/13/2020 Other K29.50 UNSPECIFIED CHRONIC GASTRITIS WITHOUT BLEEDING 02/13/2020 ASAD ROSAS DO Other F10.20 ALCOHOL DEPENDENCE, UNCOMPLICATED 02/13/2020 ASAD ROSAS DO Other F17.200 NICOTINE DEPENDENCE, UNSPECIFIED, UNCOMPLICATED 02/13/2020 ASAD ROSAS DO Other K52 .9 NONINFECTIVE GASTROENTERITIS AND COLITIS, UNSPECIFIED 02/13/2020 ASAD ROSAS DO Other R10.84 GENERALIZED ABDOMINAL PAIN 02/13/2020 ASAD ROSAS DO Other Y90 .9 PRESENCE OF ALCOHOL IN BLOOD, LEVEL NOT SPECIFIED 02/13/2020 ASAD ROSAS DO Other Z90.49 ACQUIRED ABSENCE OF OTHER SPECIFIED PARTS OF DIGESTIVE TRACT 02/13/2020 ASAD ROSAS DO Other Z90.710 ACQUIRED ABSENCE OF BOTH CERVIX AND UTERUS 02/13/2020 ASAD ROSAS DO Other Z90.89 ACQUIRED ABSENCE OF OTHER ORGANS 02/13/2020 ASAD ROSAS DO Other Z98.51 TUBAL LIGATION STATUS 02/14/2020 Other K29.50 UNSPECIFIED CHRONIC GASTRITIS WITHOUT BLEEDING 02/14/2020 Other K29.50 UNSPECIFIED CHRONIC GASTRITIS WITHOUT BLEEDING 03/25/2020 Other K29.50 UNSPECIFIED CHRONIC GASTRITIS WITHOUT BLEEDING Procedures Code Description [place] [address] CHES T X-RAY 2VW FRONTAL LATL 01/07/2015 75404 EXPI RED GAS COLLECTION 01/07/2015 92950 AIRW AY INHALATION TREATMENT 01/07/2015 60952 THER /PROPH/DIAG INJ SC/IM 01/07/2015 31535 [facility] 01/07/2015 J1885 Inje ction, ketorolac tromethamine, per 01/07/2015 J2930 Inje ction, methylprednisolone sodium s 01/07/2015 J7620 Albu terol, up to 2. 5 mg and ipratropi 01/07/2015 43143 [facility] DEPT VISIT 02/07/2015 37.22 LEFT HEART CARDIAC CATH 02/08/2015 88.56 LISA WILLI ARTERIOGR-2 CATH 02/08/2015 80859 LISA NARY ARTERY ANGIO S I 02/08/2015 34796 [facility] GEN DEPT VISIT 10/12/2015 25124 ROUT INE VENIPUNCTURE 08/22/[address] A BD PELV W/CONTRAST 08/22/2017 42702 COMP REHEN METABOLIC PANEL 08/22/2017 20240 DRUG TEST PRSMV CHEM ANLYZR 08/22/2017 80018 URIN ALYSIS AUTO W/SCOPE 08/22/2017 38933 ASSA Y OF LIPASE 08/22/2017 46741 COMP LETE CBC W/AUTO DIFF WBC 08/22/2017 83299 PROT HROMBIN TIME 08/22/2017 10633 THRO MBOPLASTIN TIME PARTIAL 08/22/2017 91876 FECE S CULTURE AEROBIC BACT 08/22/2017 50399 URIN E CULTURE/COLONY COUNT 08/22/2017 91514 THER /PROPH/DIAG IV INF INIT 08/22/2017 17521 TX/P RO/DX INJ NEW DRUG ADDON 08/22/2017 75498 [facility] DEPT VISIT 08/22/2017 G0480 DRUG TEST DEF 1-7 CLASSES 08/22/2017 J1170 Inje ction, hydromorphone, up to 4 mg 08/22/2017 J2550 Inje ction, promethazine hcl, up to 50 08/22/2017 J7030 Infu leonie, normal saline solution , 100 08/22/2017 Q9967 Low osmolar contrast material, 300-399 08/22/2017 08211 ROUT INE VENIPUNCTURE 10/14/[address] A BD PELV W/CONTRAST 10/14/2017 80182 COMP REHEN METABOLIC PANEL 10/14/2017 20314 URIN ALYSIS AUTO W/SCOPE 10/14/2017 58760 ASSA Y OF LIPASE 10/14/2017 92609 COMP LETE CBC W/AUTO DIFF WBC 10/14/2017 77694 HYDR ATE IV INFUSION ADD-ON 10/14/2017 91418 THER /PROPH/DIAG INJ IV PUSH 10/14/2017 04005 TX/P RO/DX INJ NEW DRUG ADDON 10/14/2017 00909 [facility] 10/14/2017 J1885 Inje ction, ketorolac tromethamine, per 10/14/2017 J2405 Inje ction, ondansetron hydrochloride, 10/14/2017 J7030 Infu leonie, normal saline solution , 100 10/14/2017 Q9967 Low osmolar contrast material, 300-399 10/14/2017 68932 [facility] 10/31/2017 26225 EGD DIAGNOSTIC BRUSH WASH 12/28/2017 J2704 Inje ction, propofol, 10 mg 12/28/2017 37158 X-RA Y EXAM KNEE 4 OR MORE 04/29/2018 06050 EXTR EMITY STUDY 04/29/2018 85401 [facility] 04/29/2018 58912 [facility] GENCY DEPT VISIT 05/09/2018 44770 ROUT INE VENIPUNCTURE 02/13/[address] A BD PELVIS W/O CONTRAST 02/13/2020 54228 COMP REHEN METABOLIC PANEL 02/13/2020 64144 URIN ALYSIS AUTO W/SCOPE 02/13/2020 69364 ASSA Y OF LIPASE 02/13/2020 38306 ASSA Y OF MAGNESIUM 02/13/2020 90111 ASSA Y OF TROPONIN QUANT 02/13/2020 98132 BL S MEAR W/DIFF WBC COUNT 02/13/2020 86985 COMP LETE CBC W/AUTO DIFF WBC 02/13/2020 41097 PROT HROMBIN TIME 02/13/2020 05762 THRO MBOPLASTIN TIME PARTIAL 02/13/2020 71923 URIN E CULTURE/COLONY COUNT 02/13/2020 82019 ELEC TROCARDIOGRAM TRACING 02/13/2020 74348 HYDR ATE IV INFUSION ADD-ON 02/13/2020 32055 THER /PROPH/DIAG INJ IV PUSH 02/13/2020 96000 TX/P RO/DX INJ NEW DRUG ADDON 02/13/2020 34623 [facility] 02/13/2020 J2270 Inje ction, morphine sulfate, up to 10 02/13/2020 J2765 Inje ction, metoclopramide hcl, up to 1 02/13/2020 J7030 Infu leonie, normal saline solution , 100 02/13/2020 Results Test Result Range CBC WITH DIFF [...] fL 9.4-12.3 RDW STANDARD DEVIATION 48.3 fL 36.4-46 .3 GRANULOCYTE, IMMATURE, ABSOLUTE 0.0 10*3/uL 0.0-0.1 GRANULOCYTES, [...] U/L 73-393 TROPONIN, HIGH SENSITIVITY - 06/05/17 23 :02 TROPONIN HIGH SENSITIVITY <0.015 ng/mL < 0.046 TSH WITH REFLEX TO FREE T4 - 06/05/17 23 :02 TSH 3RD GENERATION 0.512 u[iU]/mL 0.350- 4.900 URINALYSIS AUTOMATED W MICROSCOPY - 09/22 03:50 SPECIMEN VOIDED URINE COLOR LIGHT YELLOW [...] URINE POSITIVE NEGATIVE PHENCYCLIDINE, URINE SCREEN NEGATIVE NE GATIVE ALCOHOL, URINE POSITIVE NEGATIVE ALCOHOL - 06/06/17 [...] fL 9.4-12.3 RDW STANDARD DEVIATION 51.0 fL 36.4-46 .3 GRANULOCYTE, IMMATURE, ABSOLUTE 0.0 10*3/uL 0.0-0.1 GRANULOCYTES, IMMATURE, PERCENT 0.3 % 0.0-0.5 Complete blood count (CBC) with automate d white blood cell (WBC) differential - 09/29/18 07:56 Blood leukocytes automated count (number/volume) 15.7 10*3/uL 4.3-11.0 Blood erythrocytes automated count (number/volume) 5.15 10*6/uL 4.35-5.85 Venous blood hemoglobin measurement (mass/volume) 16.1 g/dL 11.5-16.0 Blood hematocrit (volume fraction) 46 % 35-52 Automated erythrocyte mean corpuscular volume 89 [ foz_us] 80-99 Automated erythrocyte mean corpuscular h emoglobin (mass per erythrocyte) 31 pg 25-34 Automated erythrocyte mean corpuscular h emoglobin concentration measurement (mass/volume) 35 g/dL 32-36 Automated erythrocyte distribution width ratio 13. 5 % 10.0- 14.5 Automated blood platelet count (count/volume) 455 10*3/uL 130-400 Automated blood platelet mean volume measurement 9.1 [foz_us] 7.4-10.4 Automated blood neutrophils/100 leukocytes 82 % 42-75 Automated blood lymphocytes/100 leukocytes 13 % 12-44 Blood monocytes/100 leukocytes 5 % 0-12 Automated blood eosinophils/100 leukocytes 0 % 0-10 Automated blood basophils/100 leukocytes 0 % 0-10 Blood neutrophils automated count (number/volume) 12.8 10*3 1.8-7.8 Blood lymphocytes automated count (number/volume) 2.1 10*3 1.0-4.0 Blood monocytes automated count (number/volume) 0. 7 10*3 0.0-1.0 Automated eosinophil count 0.0 10*3/uL 0 .0-0.3 Automated blood basophil count (count/volume) 0.0 10*3/uL 0.0-0.1 PT panel in platelet poor plasma by coag ulation assay - 09/29/18 07:56 Prothrombin time (PT) in platelet poor plasma by coagu lation assay 13.1 s 12.2-14.7 INR in platelet poor plasma or blood by coagulation as say 1.0 0.8-1.4 Activated partial thromboplastin time (a PTT) in platelet poor plasma bycoagulation assay - 09/29/18 07:56 Activated partial thromboplastin time (a PTT) in platelet poor plasma bycoagulation assay 28 s 24-35 Comprehensive metabolic panel - 09/29/18 07:56 Serum or plasma sodium measurement (moles/volume) 140 mmol/L 135-145 Serum or plasma potassium measurement (moles/volume) 3.7 mmol/L 3.6-5.0 Serum or plasma chloride measurement (moles/volume) 105 mmol/L 98-107 Carbon dioxide 19 mmol/L 21-32 Serum or plasma anion gap determination (moles/volume) 16 mmol/L 5-14 Serum or plasma urea nitrogen measurement (mass/volume ) 12 mg/dL 7-18 Serum or plasma creatinine measurement (mass/volume) 0.87 mg/dL 0.60-1.30 Serum or plasma urea nitrogen/creatinine mass ratio 14 NRG Serum or plasma creatinine measurement w ith calculation of estimated glomerular filtration rate > NRG Serum or plasma glucose measurement (mass/volume) 151 mg/dL 70-105 Serum or plasma calcium measurement (mass/volume) 10.1 mg/dL 8.5-10.1 Serum or plasma total bilirubin measurement (mass/volu me) 0.6 mg/dL 0.1-1.0 Serum or plasma alkaline phosphatase ovidio surement (enzymatic activity/volume) 98 U/L 40-136 Serum or plasma aspartate aminotransfera se measurement (enzymatic activity/volume) 23 U/L 5-34 Serum or plasma alanine aminotransferase measurement (enzymatic activity/volume) 14 U/L 0-55 Serum or plasma protein measurement (mass/volume) 8.3 g/dL 6.4-8.2 Serum or plasma albumin measurement (mass/volume) 4.8 g/dL 3.2-4.5 Lipase - 09/29/18 07:56 Lipase 16 U/L 8-78 Magnesium - 09/29/18 07:56 Magnesium 2.0 mg/dL 1.8-2.4 Blood manual differential performed dete ction - 09/29/18 07:56 Blood monocytes/100 leukocytes 2 % NRG Manual blood segmented neutrophils/100 leukocytes 86 % NRG Blood band neutrophils/100 leukocytes 0 % NRG Manual blood lymphocytes/100 leukocytes 12 % NRG Manual eosinophils/100 leukocytes in nose 0 % NRG Blood erythrocyte morphology finding identification NORMAL NRG Blood toxic granules detection by light microscopy 1+ NRG Manual blood metamyelocytes/100 leukocytes 0 % NRG Bacterial blood culture - 09/29/18 07:56 Bacterial blood culture NG NRG Complete urinalysis with reflex to cultu re - 09/29/18 09:32 Urine color determination YELLOW NRG Urine clarity determination CLEAR NR G Urine pH measurement by test strip 7 5-9 Specific gravity of urine by test strip 1.010 1.016-1.022 Urine protein assay by test strip, semi-quantitative 2+ NEGATIVE Urine glucose detection by automated test strip NE GATIVE NEGATIVE Erythrocytes detection in urine sediment by light micr oscopy NEGATIVE NEGATIVE Urine ketones detection by automated test strip 1+ NEGATIVE Urine nitrite detection by test strip NEGATIVE NEGATIVE Urine total bilirubin detection by test strip NEGA TIVE NEGATIVE Urine urobilinogen measurement by automated test strip (mass/volume) NORMAL NORMAL Urine leukocyte esterase detection by dipstick NEG ATIVE NEGATIVE Automated urine sediment erythrocyte cou nt by microscopy (number/high power field) NONE NRG Automated urine sediment leukocyte count by microscopy (number/high power field) [HPF] NRG Bacteria detection in urine sediment by light microsco py TRACE NRG Squamous epithelial cells detection in u rine sediment by light microscopy 5-10 NRG Crystals detection in urine sediment by light microsco py NONE NRG Casts detection in urine sediment by light microscopy NONE NRG Mucus detection in urine sediment by light microscopy NEGATIVE NRG Complete urinalysis with reflex to culture CULTURE PENDING NRG Bacterial urine culture - 09/29/18 09:32 Bacterial urine culture SEE COMMEN NRG COLONY COUNT . NRG Bacterial blood culture - 01/04/19 11:12 Bacterial blood culture NG NRG Complete blood count (CBC) with automate d white blood cell (WBC) differential - 01/04/19 11:17 Blood leukocytes automated count (number/volume) 13.5 10*3/uL 4.3-11.0 Blood erythrocytes automated count (number/volume) 5.11 10*6/uL 4.35-5.85 Venous blood hemoglobin measurement (mass/volume) 15.9 g/dL 11.5-16.0 Blood hematocrit (volume fraction) 46 % 35-52 Automated erythrocyte mean corpuscular volume 90 [ foz_us] 80-99 Automated erythrocyte mean corpuscular h emoglobin (mass per erythrocyte) 31 pg 25-34 Automated erythrocyte mean corpuscular h emoglobin concentration measurement (mass/volume) 35 g/dL 32-36 Automated erythrocyte distribution width ratio 13. 8 % 10.0- 14.5 Automated blood platelet count (count/volume) 341 10*3/uL 130-400 Automated blood platelet mean volume measurement 9.9 [foz_us] 7.4-10.4 Automated blood neutrophils/100 leukocytes 84 % 42-75 Automated blood lymphocytes/100 leukocytes 11 % 12-44 Blood monocytes/100 leukocytes 5 % 0-12 Automated blood eosinophils/100 leukocytes 0 % 0-10 Automated blood basophils/100 leukocytes 0 % 0-10 Blood neutrophils automated count (number/volume) 11.3 10*3 1.8-7.8 Blood lymphocytes automated count (number/volume) 1.5 10*3 1.0-4.0 Blood monocytes automated count (number/volume) 0. 6 10*3 0.0-1.0 Automated eosinophil count 0.0 10*3/uL 0 .0-0.3 Automated blood basophil count (count/volume) 0.0 10*3/uL 0.0-0.1 Blood lactic acid measurement (moles/vol ume) - 01/04/19 11:17 Blood lactic acid measurement (moles/volume) 5.07 mmol/L 0.50-2.00 Comprehensive metabolic panel - 01/04/19 11:17 Serum or plasma sodium measurement (moles/volume) 141 mmol/L 135-145 Serum or plasma potassium measurement (moles/volume) 3.8 mmol/L 3.6-5.0 Serum or plasma chloride measurement (moles/volume) 106 mmol/L 98-107 Carbon dioxide 18 mmol/L 21-32 Serum or plasma anion gap determination (moles/volume) 17 mmol/L 5-14 Serum or plasma urea nitrogen measurement (mass/volume ) 7 mg/dL 7-18 Serum or plasma creatinine measurement (mass/volume) 0.92 mg/dL 0.60-1.30 Serum or plasma urea nitrogen/creatinine mass ratio 8 NRG Serum or plasma creatinine measurement w ith calculation of estimated glomerular filtration rate > NRG Serum or plasma glucose measurement (mass/volume) 178 mg/dL 70-105 Serum or plasma calcium measurement (mass/volume) 10.4 mg/dL 8.5-10.1 Serum or plasma total bilirubin measurement (mass/volu me) 0.6 mg/dL 0.1-1.0 Serum or plasma alkaline phosphatase ovidio surement (enzymatic activity/volume) 98 U/L 40-136 Serum or plasma aspartate aminotransfera se measurement (enzymatic activity/volume) 23 U/L 5-34 Serum or plasma alanine aminotransferase measurement (enzymatic activity/volume) 16 U/L 0-55 Serum or plasma protein measurement (mass/volume) 8.0 g/dL 6.4-8.2 Serum or plasma albumin measurement (mass/volume) 4.9 g/dL 3.2-4.5 Magnesium - 01/04/19 11:17 Magnesium 2.0 mg/dL 1.8-2.4 Serum or plasma C reactive protein measu rement (mass/volume) - 01/04/19 11:17 Serum or plasma C reactive protein measurement (mass/v olume) 0.01 mg/dL 0.00-0.50 Serum or plasma troponin i.cardiac measu rement (mass/volume) - 01/04/19 11:17 Serum or plasma troponin i.cardiac measurement (mass/v olume) < ng/mL <0.028 Myoglobin, serum - 01/04/19 11:17 Myoglobin, serum 59.0 ng/mL 10.0-92.0 Serum or plasma creatine kinase measurem ent (enzymatic activity/volume) - 01/04/19 11:17 Serum or plasma creatine kinase measurem ent (enzymatic activity/volume) 131 U/L 29-168 PT panel in platelet poor plasma by coag ulation assay - 01/04/19 11:30 Prothrombin time (PT) in platelet poor plasma by coagu lation assay 13.0 s 12.2-14.7 INR in platelet poor plasma or blood by coagulation as say 1.0 0.8-1.4 Activated partial thromboplastin time (a PTT) in platelet poor plasma bycoagulation assay - 01/04/19 11:30 Activated partial thromboplastin time (a PTT) in platelet poor plasma bycoagulation assay 27 s 24-35 Bacterial blood culture - 01/04/19 12:07 Bacterial blood culture NG NRG Urine drug screening test - 01/04/19 12: 10 Urine phencyclidine detection by screening method NEGATIVE NEGATIVE Urine benzodiazepines detection by screening method NEGATIVE NEGATIVE Urine cocaine detection POSITIVE NEGATI VE Urine amphetamines detection by screening method N EGATIVE NEGATIVE Urine methamphetamine detection by screening method NEGATIVE NEGATIVE Urine cannabinoids detection by screening method P OSITIVE NEGATIVE Urine opiates detection by screening method NEGATI VE NEGATIVE Urine barbiturates detection NEGATIVE N EGATIVE Screening urine tricyclic antidepressants detection NEGATIVE NEGATIVE Urine methadone detection by screening method NEGA TIVE NEGATIVE Urine oxycodone detection NEGATIVE NEGA TIVE Urine propoxyphene detection NEGATIVE N EGATIVE Complete urinalysis with reflex to cultu re - 01/04/19 12:10 Urine color determination YELLOW NRG Urine clarity determination CLEAR NR G Urine pH measurement by test strip 6 5-9 Specific gravity of urine by test strip 1.020 1.016-1.022 Urine protein assay by test strip, semi-quantitative 2+ NEGATIVE Urine glucose detection by automated test strip 2+ NEGATIVE Erythrocytes detection in urine sediment by light micr oscopy 1+ NEGATIVE Urine ketones detection by automated test strip 3+ NEGATIVE Urine nitrite detection by test strip NEGATIVE NEGATIVE Urine total bilirubin detection by test strip NEGA TIVE NEGATIVE Urine urobilinogen measurement by automated test strip (mass/volume) NORMAL NORMAL Urine leukocyte esterase detection by dipstick NEG ATIVE NEGATIVE Automated urine sediment erythrocyte cou nt by microscopy (number/high power field) RARE NRG Automated urine sediment leukocyte count by microscopy (number/high power field) NONE NRG Bacteria detection in urine sediment by light microsco py TRACE NRG Squamous epithelial cells detection in u rine sediment by light microscopy 5-10 NRG Crystals detection in urine sediment by light microsco py NONE NRG Casts detection in urine sediment by light microscopy PRESENT NRG Mucus detection in urine sediment by light microscopy NEGATIVE NRG Complete urinalysis with reflex to culture NO NRG Hyaline casts detection in urine sediment by light geeta roscopy 25-50 NRG Bacterial urine culture - 01/04/19 12:10 Bacterial urine culture SEE REPORT NRG COLONY COUNT . NRG Serum or plasma lactate measurement (mol es/volume) - 01/04/19 13:18 Serum or plasma lactate measurement (moles/volume) 3.54 mmol/L 0.50-2.00 Methicillin resistant Staphylococcus aur eus (MRSA) screening culture - 01/04/19 17:32 Methicillin resistant Staphylococcus aureus (MRSA) scr eening culture NEG NRG Serum or plasma troponin i.cardiac measu rement (mass/volume) - 01/04/19 18:15 Serum or plasma troponin i.cardiac measurement (mass/v olume) < ng/mL <0.028 Blood lactic acid measurement (moles/vol ume) - 01/04/19 21:10 Blood lactic acid measurement (moles/volume) 2.03 mmol/L 0.50-2.00 Serum or plasma lactate measurement (mol es/volume) - 01/04/19 23:30 Serum or plasma lactate measurement (moles/volume) 2.18 mmol/L 0.50-2.00 Complete blood count (CBC) with automate d white blood cell (WBC) differential - 01/05/19 03:30 Blood leukocytes automated count (number/volume) 13.1 10*3/uL 4.3-11.0 Blood erythrocytes automated count (number/volume) 4.47 10*6/uL 4.35-5.85 Venous blood hemoglobin measurement (mass/volume) 14.0 g/dL 11.5-16.0 Blood hematocrit (volume fraction) 41 % 35-52 Automated erythrocyte mean corpuscular volume 91 [ foz_us] 80-99 Automated erythrocyte mean corpuscular h emoglobin (mass per erythrocyte) 31 pg 25-34 Automated erythrocyte mean corpuscular h emoglobin concentration measurement (mass/volume) 35 g/dL 32-36 Automated erythrocyte distribution width ratio 14. 0 % 10.0- 14.5 Automated blood platelet count (count/volume) 300 10*3/uL 130-400 Automated blood platelet mean volume measurement 9.6 [foz_us] 7.4-10.4 Automated blood neutrophils/100 leukocytes 70 % 42-75 Automated blood lymphocytes/100 leukocytes 22 % 12-44 Blood monocytes/100 leukocytes 8 % 0-12 Automated blood eosinophils/100 leukocytes 0 % 0-10 Automated blood basophils/100 leukocytes 0 % 0-10 Blood neutrophils automated count (number/volume) 9.2 10*3 1.8-7.8 Blood lymphocytes automated count (number/volume) 2.8 10*3 1.0-4.0 Blood monocytes automated count (number/volume) 1. 1 10*3 0.0-1.0 Automated eosinophil count 0.0 10*3/uL 0 .0-0.3 Automated blood basophil count (count/volume) 0.0 10*3/uL 0.0-0.1 Whole blood basic metabolic panel - 10/25 03:30 Serum or plasma sodium measurement (moles/volume) 141 mmol/L 135-145 Serum or plasma potassium measurement (moles/volume) 3.3 mmol/L 3.6-5.0 Serum or plasma chloride measurement (moles/volume) 106 mmol/L 98-107 Carbon dioxide 20 mmol/L 21-32 Serum or plasma anion gap determination (moles/volume) 15 mmol/L 5-14 Serum or plasma urea nitrogen measurement (mass/volume ) 9 mg/dL 7-18 Serum or plasma creatinine measurement (mass/volume) 0.83 mg/dL 0.60-1.30 Serum or plasma urea nitrogen/creatinine mass ratio 11 NRG Serum or plasma creatinine measurement w ith calculation of estimated glomerular filtration rate > NRG Serum or plasma glucose measurement (mass/volume) 92 mg/dL 70-105 Serum or plasma calcium measurement (mass/volume) 9.0 mg/dL 8.5-10.1 Magnesium - 01/05/19 03:30 Magnesium 1.6 mg/dL 1.8-2.4 Lipid 1996 panel - 01/05/19 03:30 Serum or plasma triglyceride measurement (mass/volume) 84 mg/dL <150 Serum or plasma cholesterol measurement (mass/volume) 140 mg/dL < 200 Serum or plasma cholesterol in HDL measurement (mass/v olume) 58 mg/dL 40-60 Cholesterol in LDL [mass/volume] in serum or plasma by direct assay 61 mg/dL 1-129 Serum or plasma cholesterol in VLDL measurement (mass/ volume) 17 mg/dL 5-40 Serum or plasma troponin i.cardiac measu rement (mass/volume) - 01/05/19 03:30 Serum or plasma troponin i.cardiac measurement (mass/v olume) < ng/mL <0.028 Blood lactic acid measurement (moles/vol ume) - 01/05/19 10:05 Blood lactic acid measurement (moles/volume) 1.34 mmol/L 0.50-2.00 Complete blood count (CBC) with automate d white blood cell (WBC) differential - 04/01/20 15:00 Blood leukocytes automated count (number/volume) 8.0 10*3/uL 4.3-11.0 Blood erythrocytes automated count (number/volume) 4.90 10*6/uL 4.35-5.85 Venous blood hemoglobin measurement (mass/volume) 16.1 g/dL 11.5-16.0 Blood hematocrit (volume fraction) 46 % 35-52 Automated erythrocyte mean corpuscular volume 93 [ foz_us] 80-99 Automated erythrocyte mean corpuscular h emoglobin (mass per erythrocyte) 33 pg 25-34 Automated erythrocyte mean corpuscular h emoglobin concentration measurement (mass/volume) 35 g/dL 32-36 Automated erythrocyte distribution width ratio 13. 6 % 10.0- 14.5 Automated blood platelet count (count/volume) 351 10*3/uL 130-400 Automated blood platelet mean volume measurement 9.6 [foz_us] 7.4-10.4 Automated blood neutrophils/100 leukocytes 63 % 42-75 Automated blood lymphocytes/100 leukocytes 28 % 12-44 Blood monocytes/100 leukocytes 8 % 0-12 Automated blood eosinophils/100 leukocytes 1 % 0-10 Automated blood basophils/100 leukocytes 0 % 0-10 Blood neutrophils automated count (number/volume) 5.1 10*3 1.8-7.8 Blood lymphocytes automated count (number/volume) 2.2 10*3 1.0-4.0 Blood monocytes automated count (number/volume) 0. 7 10*3 0.0-1.0 Automated eosinophil count 0.0 10*3/uL 0 .0-0.3 Automated blood basophil count (count/volume) 0.0 10*3/uL 0.0-0.1 Comprehensive metabolic panel - 04/01/20 15:00 Serum or plasma sodium measurement (moles/volume) 143 mmol/L 135-145 Serum or plasma potassium measurement (moles/volume) 3.6 mmol/L 3.6-5.0 Serum or plasma chloride measurement (moles/volume) 104 mmol/L 98-107 Carbon dioxide 19 mmol/L 21-32 Serum or plasma anion gap determination (moles/volume) 20 mmol/L 5-14 Serum or plasma urea nitrogen measurement (mass/volume ) 4 mg/dL 7-18 Serum or plasma creatinine measurement (mass/volume) 0.96 mg/dL 0.60-1.30 Serum or plasma urea nitrogen/creatinine mass ratio 4 NRG Serum or plasma creatinine measurement w ith calculation of estimated glomerular filtration rate > NRG Serum or plasma glucose measurement (mass/volume) 129 mg/dL 70-105 Serum or plasma calcium measurement (mass/volume) 9.9 mg/dL 8.5-10.1 Serum or plasma total bilirubin measurement (mass/volu me) 1.4 mg/dL 0.1-1.0 Serum or plasma alkaline phosphatase ovidio surement (enzymatic activity/volume) 90 U/L 40-136 Serum or plasma aspartate aminotransfera se measurement (enzymatic activity/volume) 38 U/L 5-34 Serum or plasma alanine aminotransferase measurement (enzymatic activity/volume) 17 U/L 0-55 Serum or plasma protein measurement (mass/volume) 8.1 g/dL 6.4-8.2 Serum or plasma albumin measurement (mass/volume) 4.9 g/dL 3.2-4.5 Lipase - 04/01/20 15:00 Lipase 29 U/L 8-78 Serum or plasma ethanol measurement (mas s/volume) - 04/01/20 15:00 Serum or plasma ethanol measurement (mass/volume) < mg/dL <10 Serum or plasma troponin i.cardiac measu rement (mass/volume) - 04/01/20 15:00 Serum or plasma troponin i.cardiac measurement (mass/v olume) < ng/mL <0.028 Urine drug screening test - 04/01/20 15: 19 Urine phencyclidine detection by screening method NEGATIVE NEGATIVE Urine benzodiazepines detection by screening method NEGATIVE NEGATIVE Urine cocaine detection POSITIVE NEGATI VE Urine amphetamines detection by screening method N EGATIVE NEGATIVE Urine methamphetamine detection by screening method NEGATIVE NEGATIVE Urine cannabinoids detection by screening method P OSITIVE NEGATIVE Urine opiates detection by screening method NEGATI VE NEGATIVE Urine barbiturates detection NEGATIVE N EGATIVE Screening urine tricyclic antidepressants detection NEGATIVE NEGATIVE Urine methadone detection by screening method NEGA TIVE NEGATIVE Urine oxycodone detection NEGATIVE NEGA TIVE Urine propoxyphene detection NEGATIVE N EGATIVE Complete urinalysis with reflex to cultu re - 04/01/20 15:19 Urine color determination YELLOW NRG Urine clarity determination CLEAR NR G Urine pH measurement by test strip 7.5 5-9 Specific gravity of urine by test strip 1.020 1.016-1.022 Urine protein assay by test strip, semi-quantitative 2+ NEGATIVE Urine glucose detection by automated test strip NE GATIVE NEGATIVE Erythrocytes detection in urine sediment by light micr oscopy TRACE-I NEGATIVE Urine ketones detection by automated test strip TR ANA NEGATIVE Urine nitrite detection by test strip NEGATIVE NEGATIVE Urine total bilirubin detection by test strip NEGA TIVE NEGATIVE Urine urobilinogen measurement by automated test strip (mass/volume) 0.2 mg/dL < = 1.0 Urine leukocyte esterase detection by dipstick NEG ATIVE NEGATIVE Automated urine sediment erythrocyte cou nt by microscopy (number/high power field) [HPF] NRG Automated urine sediment leukocyte count by microscopy (number/high power field) [HPF] NRG Bacteria detection in urine sediment by light microsco py TRACE NRG Squamous epithelial cells detection in u rine sediment by light microscopy 5-10 NRG Crystals detection in urine sediment by light microsco py PRESENT NRG Casts detection in urine sediment by light microscopy NONE NRG Mucus detection in urine sediment by light microscopy LARGE NRG Complete urinalysis with reflex to culture NO NRG Amorphous sediment detection in urine sediment by ligh t microscopy FEW SARABJIT PHOSPHATE NRG Radiology Report from [id number] on 23:42:04 EXAM: CT Abdomen and Pelvis INDICATION: Uncontrolled emesis, vomiting, generalized abdominal painTECHNIQUE: Multiple contiguous helical axial imaging was performed through the abdomen and pelvis during and after the administration of IV contrast. Sagittal and coronal images were acquired utilizing the axial image data set. Automated Exposure Control (AEC) was utilized for patient radiation dose reduction. All CT scans performed at this facility utilize dosage reduction techniques as appropriate to the exam, including the following Automatic Exposure Control, and adjustment of the mA and/or kV according to patient size.DLP: 1200 mGycmCOMPARISON: NoneCT abdomen findings:The lung bases are clear. There is no pleural or pericardial effusion. There is mildly elongated Nabila's lobe. Spleen is normal in size. The pancreas and adrenal glands are unremarkable. Kidneys normal in size without hydronephrosis. The abdominal aorta is normal in caliber. There is no retroperitoneal adenopathy. Pr ior cholecystectomy is noted. There is no upper abdominal ascites or inflammatory mass. The lumbar spine is intact.CT pelvis findings:The appendix is absent with surgical clips near the tip of the appendix. Large and small bowel appear grossly unremarkable. There is no pelvic ascites. Urinary bladder is unremarkable. There is no iliac or inguinal adenopathy. The uterus is absent. The pelvic osseous structures are intact.Impression:1. No acute inflammatory process identified in the abdomen or pelvis. No ascites.2. Prior cholecystectomy. Encounters ACCT No. Visit Date/Time Discharge Status Pt. Type Provider Facility Loc./Unit Complaint [id number] 09/28/2018 07:55:00 09/28/2018 23:59: 59 CLS Outpatient CHARLES BRIGGS [facility] [id number] 01/04/2019 16:50:00 10:42:00 DIS Outpatient SUMAYA STOKES MD [facility] ICU HYPERTENSION;N/V/D [id number] 09/29/2018 07:29:00 019 11:00:00 DIS Emergency CHET NAVARRO MD [facility] ER ABD PAIN;N/V/D [id number] 09/24/2018 12:08:00 13:29:00 DIS Emergency JJ PATTON [facility] ER R LEG PAIN [id number] 08/19/2018 09:15:00 23:59:59 CLS Emergency TIERRA DIAMOND MD [facility] ER R LEG/HIP PAIN [id number] 04/01/2020 14:53:[address] Emergency ASAD DAVIS APRN [facility] ER ABD PAIN;N/V [id number] 02/13/2020 07:49:00 020 12:51:00 DIS Emergency ASAD ROSAS DO [facility] ER abd pain [id number] 05/09/2018 20:37:00 Document Registration [id number] 04/29/2018 21:00:00 Document Registration [id number] 12/28/2017 15:19:00 Document Registration [id number] 12/15/2017 14:07:00 Document Registration [id number] 10/31/2017 16:31:00 Document Registration [id number] 10/14/2017 22:34:00 Document Registration [id number] 08/22/2017 11:06:00 Document Registration [id number] 10/12/2015 17:00:00 Document Registration [id number] 02/06/2015 23:15:00 Document Registration [id number] 01/07/2015 12:11:00 Document Registration [id number] 08/04/2014 17:01:00 Document Registration [id number] 06/05/2017 22:03:00 06/07/2017 12: 13:00 DIS Inpatient ZHANE PAN [address]
--- NOTE | 2020-04-01 17:30 | NUR ---
PATIENT STATES SHE IS FEELING BETTER. HER NAUSEA AND PAIN HAS IMPROVED.
[2020-04-01] MEDS ORDERED: LOSA50TA63 PO (18:12)
[2020-04-01 18:26] VITALS: BP 186/143
== END 2020-04-01 18:33 | disposition other institution (70) ==
LOC: EDUNIT# 14:52 → ER 14:53
DX: R11.2 Nausea with vomiting, unspecified (principal); F12.20 Cannabis dependence, uncomplicated; R10.13 Epigastric pain; T40.7X5A Adverse effect of cannabis (derivatives), initial encounter; F14.10 Cocaine abuse, uncomplicated; I10 Essential (primary) hypertension; Z87.19 Personal history of other diseases of the digestive system
CPT/HCPCS: 74177; 80053; 80306; 81000; 83690; 84484; 85025; 93005; 99284; G0480; 36415; 80320